=== PATIENT | female | born 1990 | race Caucasian/White ===

== ENCOUNTER → 2017-08-17 | Emergency (ER) | payer SELFPAY ==
[~2017-08-17] VITALS: Ht 157.4 cm; Wt 59.0 kg
[~2017-08-17] MED LIST: CEFADROXIL500 M1 PO
== END ==
LOC: ED 22:25
DX: S61.012A Laceration without foreign body of left thumb without damage to nail, initial encounter (principal); Z90.89 Acquired absence of other organs; Z88.1 Allergy status to other antibiotic agents; W26.0XXA Contact with knife, initial encounter; Y93.89 Activity, other specified; Y92.89 Other specified places as the place of occurrence of the external cause; Y99.9 Unspecified external cause status